=== PATIENT | male | born 1975 | race Caucasian/White ===

== ENCOUNTER 2017-04-19 21:27 | Emergency (ER) | payer MEDICAID, MEDICARE ==
[~2017-04-19] VITALS: Ht 190.5 cm; Wt 133.8 kg
[~2017-04-19 21:27] MED LIST: FLUO20CA19 PO; OMEP20TA44 PO; OXYCODONE PO; TIZANADINE PO
[2017-04-20 04:09] VITALS: BP 129/72
[2017-04-20] MEDS ORDERED: KETOROLAC TROMETH 60MG/2ML VIAL IM ONE (05:15)
[2017-04-20] MEDS ORDERED: HYDROcodone-ACET 10/325MG TAB PO ONE (05:15)
== END 2017-04-20 06:17 | disposition home or self-care (01) ==
LOC: ER 21:47
DX: S20.229A Contusion of unspecified back wall of thorax, initial encounter (principal); W19.XXXA Unspecified fall, initial encounter; G89.29 Other chronic pain; M54.9 Dorsalgia, unspecified; Z88.0 Allergy status to penicillin; Y93.E1 Activity, personal bathing and showering; Y99.8 Other external cause status; Y92.89 Other specified places as the place of occurrence of the external cause
CPT/HCPCS: 70450; 72100; 72125; 96372; 99284; J1885

== ENCOUNTER 2021-07-23 07:54 | Emergency (ER) | payer MEDICARE ==
[~2021-07-23] VITALS: Ht 188 cm; Wt 142.9 kg
[2021-07-23 08:00] VITALS: BP 144/78
[2021-07-23] MEDS ORDERED: ONDANSETRON HCL 4 MG/2 ML VIAL IV ONE (08:15)
[2021-07-23] MEDS ORDERED: ACETAMINOPHEN 325 MG TAB PO ONE (08:15)
[2021-07-23] MEDS ORDERED: SODIUM CHLORIDE 0.9% 1,000 ML IV ONE (08:15)
[2021-07-23 09:12] LABS: Basophils # (auto) 0 10 ^3/uL (0-0.2); Basophils % (auto) 0.4 % (0.0-2.0); Eosinophils # (auto) 0 10 ^3/uL (0-0.8); Eosinophils % (auto) 0.4 % (0.0-7.0); Hematocrit 43.9 % (41.0-53.0); Hemoglobin 15.2 g/dL (13.5-17.5); Lymphocytes # (auto) 0.7 10 ^3/uL (0.4-5.4); Lymphocytes % (auto) 20.5 % (10.0-50.0); Mean Corpuscular Hemoglobin 31.5 pg (28.0-32.0); Mean Corpuscular Hgb Conc. 34.6 g/dL (32.0-36.0); Monocytes # (auto) 0.4 10 ^3/uL (0-1.3); Monocytes % (auto) 10.9 % (0.0-12.0); Neutrophils # (auto) 2.5 10 ^3/uL (1.6-8.6); Neutrophils % (auto) 67.8 % (37.0-80.0); Nucleated Red Blood Cells % 0.2 %; Red Blood Cells 4.82 10^6/uL (4.5-5.90); Red Cell Distribution Width 13.6 % (11.8-14.3); White Blood Cell 3.6 10^3/uL (4.4-10.8)
[2021-07-23 09:22] LABS: Albumin 2.9 g/dL (3.4-5.0); Calcium 8.5 mg/dL (8.5-10.1); Potassium 4.3 mmol/L (3.5-5.1)
[2021-07-23 09:25] LABS: BUN/Creatinine Ratio 12.6; Bilirubin, Total 0.5 mg/dL (0.2-1.0); Total Protein 7.4 g/dL (6.4-8.2)
== END 2021-07-23 09:57 | disposition home or self-care (01) ==
LOC: ER 07:54
DX: U07.1 COVID-19 (principal); J12.82 Pneumonia due to coronavirus disease 2019
CPT/HCPCS: 36415; 71045; 80053; 83690; 85025; 96361; 96374; 99284; J2405; J7030

== ENCOUNTER 2021-07-23 10:32 | Outpatient (CLI) | payer MEDICARE, BC ==
[~2021-07-23] VITALS: Ht 185.4 cm; Wt 156.5 kg
[2021-07-23] VITALS (7 sets, daily range): BP systolic 116–138; BP diastolic 57–79
[2021-07-23] MEDS ORDERED: REGENERON 1200mg/250ml NS 250 ML IV ONE (11:15)
[2021-07-23] MEDS ORDERED: ONDANSETRON HCL 4 MG/2 ML VIAL IV ONE (12:45)
[2021-07-23] MEDS ORDERED: ONDANSETRON HCL 4 MG/2 ML VIAL ONE (12:51)
== END 2021-07-23 13:39 | disposition home or self-care (01) ==
LOC: ER 10:32
PROVIDERS: ATTEND Internal Medicine
DX: U07.1 COVID-19 (principal); J12.82 Pneumonia due to coronavirus disease 2019; R11.0 Nausea
CPT/HCPCS: 96374; J2405; J7050; M0243; Q0244